=== PATIENT | male | born 1935 | race Caucasian/White ===

== ENCOUNTER 2017-07-09 13:51 | Emergency (ER) | payer MEDICARE, OTHER ==
[2017-07-09 16:57] LABS: BILIRUBIN NEGATIVE (NEGATIVE); BLOOD 1+ Ery/uL (NEGATIVE); CLARITY HAZY (CLEAR); COLOR YELLOW (YELLOW); GLUCOSE (U) NORMAL (NORMAL); KETONE (U) TRACE mg/dL (NEGATIVE); LEUKOCYTES 2+ Leu/uL (NEGATIVE); NITRITE NEGATIVE (NEGATIVE); PROTEIN NEGATIVE (NEGATIVE); UROBILINOGEN 0.2 mg/dL (0.2-1.0)
[2017-07-09 17:31] LABS: BACTERIA 4+; SQUAMOUS EPITHELIAL CELLS RARE; URINARY WBC 20-50
== END 2017-07-09 17:23 | disposition home or self-care (01) ==
LOC: FER 13:51
PROVIDERS: Emergency Medicine
DX: N43.40 Spermatocele of epididymis, unspecified (principal); N50.89 Other specified disorders of the male genital organs; Z87.438 Personal history of other diseases of male genital organs; Z88.0 Allergy status to penicillin; Z88.8 Allergy status to other drugs, medicaments and biological substances; Z79.899 Other long term (current) drug therapy
CPT/HCPCS: 76870; 81001; 87076; 87088; 87186